=== PATIENT | female | born 1990 | race Caucasian/White ===

== ENCOUNTER 2023-02-02 15:36 | Emergency (ER) | payer OTHER ==
[2023-02-02 15:52] VITALS: BP 124/78; PULSE 93; RESP 18; TEMP 98.1; BMI 38.2
[2023-02-02] MEDS ORDERED: KETOROLAC TROMETHAMINE 30 MG/1 ML VIAL IM ONE (16:25)
[2023-02-02] MEDS ORDERED: KETOROLAC TROMETHAMINE 30 MG/1 ML VIAL ONE (16:40)
== END 2023-02-02 18:22 | disposition home or self-care (01) ==
LOC: JERFT 15:36
PROC: 3E0233Z Introduction of Anti-inflammatory into Muscle, Percutaneous Approach (ICD-10-PCS; principal; 2023-02-02)
DX: M54.2 Cervicalgia (principal); W01.198A Fall on same level from slipping, tripping and stumbling with subsequent striking against other object, initial encounter; Y93.01 Activity, walking, marching and hiking; Y99.0 Civilian activity done for income or pay
CPT/HCPCS: 72050-TC-FY; 72070-TC-FY; 72100-TC-FY; 73070-TC-LT-FY; 73560-TC-LT-FY; 99284-25